=== PATIENT | female | born 1990 | race Caucasian/White ===

== ENCOUNTER 2017-05-29 23:41 | Emergency (ER) | payer BC ==
[~2017-05-29] VITALS: Ht 172.7 cm; Wt 65.0 kg
[2017-05-29 23:45] VITALS: BP 128/73; PULSE 88; RESP 16; TEMP 98.4; O2SAT 100
[2017-05-30 01:19] LABS: BILIRUBIN, URINE NEG (NEG); BLOOD, URINE NEG (NEG); GLUCOSE,URINE NEG (NEG); KETONE, URINE NEG (NEG); NITRITE,URINE NEG (NEG); PH, URINE 6.5 (5.0-8.5); URINE COLOR LIGHT-YELLOW (YELLW/STRAW); URINE LEUKOCYTE ESTERASE NEG (NEG)
[2017-05-30 01:23] LABS: CALCIUM 8.9 MG/DL (8.5-10.1); CREATININE 0.69 MG/DL (0.50-1.00)
[2017-05-30 01:31] LABS: AUTOMATED NEUTROPHIL # 4.6 TH/MM3 (1.8-7.7); BASOPHIL % 0.4 % (0.0-2.0); EOSINOPHIL # 0.1 TH/MM3 (0-0.4); EOSINOPHIL % 1.5 % (0.0-4.0); HEMATOCRIT 36.5 % (35.0-46.0); HEMOGLOBIN 12.9 GM/DL (11.6-15.3); LYMPH % 34.6 % (9.0-44.0); LYMPHOCYTE # 2.9 TH/MM3 (1.0-4.8); MEAN CELL VOLUME 82.9 FL (80.0-100.0); MEAN CORPUSCULAR HEMOGLOBIN 29.3 PG (27.0-34.0); MEAN CORPUSCULAR HGB CONC 35.4 % (32.0-36.0); MEAN PLATELET VOLUME 8.4 FL (7.0-11.0); MONO % 7.6 % (0.0-8.0); MONOCYTE # 0.6 TH/MM3 (0-0.9); NEUT % 55.9 % (16.0-70.0); PLATELET COUNT 233 TH/MM3 (150-450); WHITE BLOOD COUNT 8.3 TH/MM3 (4.0-11.0)
--- NOTE | 2017-05-30 02:55 | RADRPT ---
EXAM DATE/TIME: 05/30/2017 02:14 [place] COMPARISON: No previous studies available for comparison. INDICATIONS : Bleeding. LAB(S): [facility] MEDICAL HISTORY : None. SURGICAL HISTORY : None. ENCOUNTER: Initial ACUITY: 1 week PAIN SCORE: 0/10 LOCATION: Bilateral pelvis MEASUREMENTS: UTERUS: 9.9 x 6.6 x 5.1 cm ENDOMETRIAL STRIPE: 11 mm RIGHT OVARY: 3.9 x 1.7 x 1.5 cm LEFT OVARY: 3.3 x 2.4 x 2.0 cm FREE FLUID: No FINDINGS: UTERUS: 1.1 cm gestational sac within the uterine cavity corresponding to age of 5 weeks 2 days. Yolk sac see n. No perceptible pole. A 7 x 5 x 12 mm subchorionic hemorrhage is present. RIGHT OVARY: Subcentimeter follicles. LEFT OVARY: Subcentimeter follicles. Probable 23 x 17 x 11 mm corpus luteal cyst. MISCELLANEOUS: No free fluid. CONCLUSION: 1. Early intrauterine . pole not clearly visualized and there is a small subchorionic hemorrhage. Followup is recommended. 2. No evidence of ectopic. Bilateral ovarian subcentimeter follicles and a left corpus luteal cyst. Murray Jiménez MD on May 30, 2017 at 2:52 Board Certified Radiologist. This report was verified electronically.
--- NOTE | 2017-05-30 03:34 | PD ---
HPI Chief Complaint: Related Problem Time Seen by Provider: 01:27 Travel History International Travel<30 days: No Contact w/Intl Traveler<30days: No Traveled to known affect area: No History of Present Illness HPI 27-year-old female presents to the emergency department by private transportation to care family for evaluation of vaginal bleeding and possible miscarriage. Patient has been followed by her primary [facility] in [place] and is visiting the area over the weekend. Patient states that she was told last week that her quantitative hormone level was not consistent with her dates. Patient has had ultrasound for intrauterine . Patient states she was passing large clots and having heavy bleeding like a heavy period. Patient states she is no longer having active bleeding at this time. Patient complains of crampy lower abdominal pain and pelvic pain. No fever no chills no dysuria frequency urgency hematuria or flank pain. Patient denies chest pain pleuritic chest pain or shortness of breath. PFSH Past Medical History Immunizations Current: Yes Tetanus Vaccination: Unknown Influenza Vaccination: Yes ?: Unknown Social History Alcohol Use: No Tobacco Use: No Substance Use: No Allergies-Medications (Allergen,Severity, Reaction): Coded Allergies: No Known Allergies (Unverified , 05/30/17) Reported Meds & Prescriptions Reported Meds & Active Scripts Active No Active Prescriptions or Reported Medications Review of Systems Except as stated in HPI: all other systems reviewed are Neg Physical Exam Narrative GENERAL: Well-developed well-nourished female no acute distress or respiratory distress SKIN: Warm and dry. HEAD: Normocephalic. EYES: No scleral icterus. No injection or drainage. NECK: Supple, trachea midline. No JVD or lymphadenopathy. CARDIOVASCULAR: Regular rate and rhythm without murmurs, gallops, or rubs. RESPIRATORY: Breath sounds equal bilaterally. No accessory muscle use. GASTROINTESTINAL: Abdomen soft, non-tender, nondistended. Pelvic exam normal external exam no redness induration or lesion; scant blood in vaginal vault no clots no tissue cervical loss is closed; bimanual exam no cervical motion tenderness no adnexal mass or tenderness MUSCULOSKELETAL: No cyanosis, or edema. BACK: Nontender without obvious deformity. No CVA tenderness. Data Data Last Documented VS Vital Signs Date Time Temp Pulse Resp B/P (MAP) Pulse Ox O2 Delivery O2 Flow Rate FiO2 05/30/17 03:33 05/29/17 23:45 98.4 88 16 100 Room Air Orders Orders Beta Hcg (Quant/Titer) (05/30/17 00:33) Complete Blood Count With Diff (05/30/17 00:33) Basic Metabolic Panel (Bmp) (05/30/17 00:33) Complete Rh (05/30/17 00:33) Urinalysis - C+S If Indicated (05/30/17 00:33) Ed Urine Pregnancytest Poc (05/30/17 00:33) Us Pelvis (Ques Pr/Ect)W Trans (05/30/17 ) Ed Discharge Order (05/30/17 03:31) Labs Laboratory Tests Test 05/30/17 00:38 White Blood Count 8.3 TH/MM3 Red Blood Count 4.40 MIL/MM3 Hemoglobin 12.9 GM/DL Hematocrit 36.5 % Mean Corpuscular Volume 82.9 FL Mean Corpuscular Hemoglobin 29.3 PG Mean Corpuscular Hemoglobin Concent 35.4 % Red Cell Distribution Width 13.0 % Platelet Count 233 TH/MM3 Mean Platelet Volume 8.4 FL Neutrophils (%) (Auto) 55.9 % Lymphocytes (%) (Auto) 34.6 % Monocytes (%) (Auto) 7.6 % Eosinophils (%) (Auto) 1.5 % Basophils (%) (Auto) 0.4 % Neutrophils # (Auto) 4.6 TH/MM3 Lymphocytes # (Auto) 2.9 TH/MM3 Monocytes # (Auto) 0.6 TH/MM3 Eosinophils # (Auto) 0.1 TH/MM3 Basophils # (Auto) 0.0 TH/MM3 CBC Comment DIFF FINAL Differential Comment Urine Color LIGHT-YELLOW Urine Turbidity CLEAR Urine pH 6.5 Urine Specific [place] 1.006 Urine Protein NEG mg/dL Urine Glucose (UA) NEG mg/dL Urine Ketones NEG mg/dL Urine Occult Blood NEG Urine Nitrite NEG Urine Bilirubin NEG Urine Urobilinogen LESS THAN 2.0 MG/DL Urine Leukocyte Esterase NEG Urine RBC LESS THAN 1 /hpf Urine WBC 1 /hpf Microscopic Urinalysis Comment CULT NOT INDICATED Blood Urea Nitrogen 11 MG/DL Creatinine 0.69 MG/DL Random Glucose 74 MG/DL Calcium Level 8.9 MG/DL Sodium Level 141 MEQ/L Potassium Level 3.5 MEQ/L Chloride Level 107 MEQ/L Carbon Dioxide Level 29.0 MEQ/L Anion Gap 5 MEQ/L Estimat Glomerular Filtration Rate 101 ML/MIN Human Chorionic Gonadotropin, Quant 6277 MIU/ML MDM Medical Decision Making Medical Screen Exam Complete: Yes Emergency Medical Condition: Yes Medical Record Reviewed: Yes Interpretation(s) Last Impressions Pelvis Ultrasound 05/30/17 0000 Signed Impressions: Service Date/Time: Tuesday, May 30, 2017 02:14 - CONCLUSION: 1. Early intrauterine . pole not clearly visualized and there is a small subchorionic hemorrhage. Followup is recommended. 2. No evidence of ectopic. Bilateral ovarian subcentimeter follicles and a left corpus luteal cyst. Murray Jiménez MD CBC & BMP Diagram 05/30/17 00:38 Calcium Level 8.9 Vital Signs Date Time Temp Pulse Resp B/P (MAP) Pulse Ox O2 Delivery O2 Flow Rate FiO2 05/29/17 23:45 98.4 88 16 128/73 (91) 100 Room Air Differential Diagnosis , ectopic , spontaneous AB, threatened spontaneous AB, incomplete spontaneous AB, anemia, UTI Narrative Course At 3:30 AM ultrasound reveals intrauterine with poor visualization of pole small subchorionic hemorrhage recommendation of repeat imaging study patient is aware of need for repeat ultrasound and quantitative hCG and 48 hours and to return immediately to the emergency department before for any concerns or increased bleeding or recurrent bleeding Diagnosis Primary Impression: Qualified Codes: Z3A.01 - Less than 8 weeks gestation of Additional Impression: Threatened spontaneous Referrals: [facility] [employer] 2 days Patient Instructions: General Instructions Additional Instructions: Follow-up with [facility] Continue vitamins Take acetaminophen/Tylenol as needed for discomfort or for fever 100.4F or greater Increase fluid hydration Recommend pelvic rest Recommend bedrest Return immediately to the emergency department for any concerns or change in condition or bleeding more than as a sanitary napkin/pad per hour Repeat quantitative hCG at 48 hours and repeat ultrasound Scripts No Active Prescriptions or Reported Meds Disposition: 01 DISCHARGE HOME Condition: Stable Cassandra Celaya MD May 30, 2017 03:34
== END 2017-05-30 03:46 | disposition home or self-care (01) ==
LOC: NEPC 23:41
DX: O20.0 Threatened abortion (principal)
CPT/HCPCS: 76700; 76817; 80048; 81001; 84702; 84703; 85025; 86901; 99284